=== PATIENT | male | born 1985 | race Caucasian/White ===

== ENCOUNTER → 2016-09-22 | Outpatient (REF) | payer BC ==
[2016-09-22 14:54] LABS: BASOPHILS % (AUTO) 1 % (0-2); EOSINOPHILS # (AUTO) 0.2 10^3uL; EOSINOPHILS % (AUTO) 2 % (0-4); LYMPHOCYTES # (AUTO) 2.3 X10^3; MEAN CORPUSCULAR VOLUME 92 FL (80-100); MEAN PLATELET VOLUME 10.1 FL (6.0-9.5); MONOCYTES # (AUTO) 0.4 X10^3; MONOCYTES % (AUTO) 6 % (3-11); NEUTROPHILS # (AUTO) 4.2 X10^3; NEUTROPHILS % (AUTO) 59 % (51-67); PLATELET COUNT 318 10^3uL (150-450); WHITE BLOOD COUNT 7.21 10^3uL (4.0-11.0)
[2016-09-22 15:01] LABS: BILIRUBIN,URINE Negative (Negative); CLARITY,URINE Clear; COLOR,URINE Yellow; GLUCOSE, URINE (UA) 1+ (Negative); LEUKOCYTE ESTERASE ,URINE Negative (Negative); UROBILINOGEN,URINE 0.2 mg/dL (0.2-1.0)
[2016-09-22 15:10] LABS: ALBUMIN 4.3 g/dL (3.4-5.0); ANION GAP 16.6 MEQ/L (3-15); CALCULATED IONIZED CALCIUM 4.3 mg/dL (3.8-4.6); TOTAL PROTEIN 6.9 g/dL (6.4-8.5)
[2016-09-22 15:11] LABS: MEAN CORPUSCULAR HEMOGLOBIN 32.8 PG (26.0-34.0); MEAN CORPUSCULAR HGB CONC 35.8 g/dL (31.0-37.0)
== END ==
LOC: LAB 14:32
PROVIDERS: ATTEND Family Medicine
DX: E10.9 Type 1 diabetes mellitus without complications (principal); E75.5 Other lipid storage disorders
CPT/HCPCS: 80053; 80061; 81003; 82043; 83036; 85025

== ENCOUNTER → 2017-01-12 | Outpatient (REF) | payer BC ==
[~2017-01-12] MED LIST: GLUCOMETER MC; INSASP1U SQ; INSU100I14 SQ; INSU100V32 SC; LANC1KIT MC; [UNRECOGNIZED DRUG - CODE] MC; [UNRECOGNIZED DRUG - CODE] MC
== END ==
LOC: LAB 14:35
PROVIDERS: ATTEND Family Medicine
DX: E10.9 Type 1 diabetes mellitus without complications (principal)
CPT/HCPCS: 83036